=== PATIENT | female | born 1975 | race Caucasian/White ===

== ENCOUNTER 2020-10-25 19:00 | Emergency (ER) | payer BC ==
[~2020-10-25] VITALS: Ht 180.3 cm; Wt 85.4 kg
[2020-10-25 19:23] VITALS: BP 131/82
[2020-10-25] MEDS ORDERED: OXYMETAZOLINE 0.05% NASAL SPRAY 30ML BOTTLE. NS ONE ×2 (19:30→19:34)
[2020-10-25] MEDS ORDERED: ACETAMINOPHEN 500 MG TABLET PO ONE ×2 (19:30→19:34)
[2020-10-25] MEDS ORDERED: IBUPROFEN 600 MG TABLET. PO ONE ×2 (19:34→19:45)
--- NOTE | 2020-10-25 20:13 | PHYS DOC ---
Past History Past Medical History: Cancer, Other Past Surgical History: No Surgical History Alcohol Use: None Drug Use: None Adult General Chief Complaint Chief Complaint: ALLERGIES HPI HPI Patient is a 45-year-old female with a past medical history significant for seasonal allergies who presents with nasal congestion. States has had some nasal congestion and itchy nose and eyes for the last couple of days. States he has been taking Benadryl which does help the itching but has not helped her nasal congestion. Denies any recent traumas, illnesses, fevers, sore throat, pain or trouble swallowing, cough, chest pain, shortness of breath, abdominal pain, nausea, vomiting. Review of Systems Review of Systems Review of systems otherwise unremarkable except noted in HPI Current Medications Current Medications Current Medications Medications (Trade) Dose Ordered Sig/Calli Start Time Stop Time Status Last Admin Dose Admin Acetaminophen (Tylenol) 500 mg STK-MED ONCE 10/25/20 19:34 10/25/20 19:34 DC Ibuprofen (Motrin) 600 mg STK-MED ONCE 10/25/20 19:34 10/25/20 19:34 DC Oxymetazoline HCl (Afrin) 100 spray STK-MED ONCE 10/25/20 19:34 10/25/20 19:34 DC Allergies Allergies Allergies Coded Allergies Type Severity Reaction Last Updated Verified No Known Drug Allergies 10/25/20 No Physical Exam Physical Exam Constitutional: Well developed, well nourished, no acute distress, non-toxic appearance. [] HENT: Normocephalic, atraumatic, bilateral external ears normal, oropharynx moist, no oral exudates, nasal congestion/mucus bilaterally, nose normal. [] Eyes: conjunctiva normal, no discharge. [] Neck: Normal range of motion, no tenderness, supple, no stridor. [] Cardiovascular:Heart rate regular rhythm, no murmur [] Lungs & Thorax: Bilateral breath sounds clear to auscultation [] Neurologic: Alert and oriented X 3, normal motor function, normal sensory functi on, no focal deficits noted. [] Psychologic: Affect normal, judgement normal, mood normal. [] Current Patient Data Vital Signs Vital Signs Date Time Temp Pulse Resp B/P (MAP) Pulse Ox O2 Delivery O2 Flow Rate FiO2 10/25/20 19:23 97.9 77 22 131/82 98 Room Air EKG EKG [] Radiology/Procedures Radiology/Procedures [] Heart Score C/O Chest Pain: No Risk Factors: Risk Factors: DM, Current or recent (<one month) smoker, HTN, HLP, family history of CAD, obesity. Risk Scores: Risk Factors: DM, Current or recent (<one month) smoker, HTN, HLP, family history of CAD, obesity. Course & Med Decision Making Course & Med Decision Making Patient is a 45-year-old female with nasal congestion for 2 days and seasonal allergies Vital signs not concerning. Physical exam noted above. Given Tylenol, ibuprofen and Afrin with some relief. Discussed all findings with patient. Advised on symptom management at home. Advised to follow-up with primary care physician in the morning. Gave return precautions to the ED. Patient grateful, verbalized understanding and agreed with plan of discharge. [] Dragon Disclaimer Dragon Disclaimer This electronic medical record was generated, in whole or in part, using a voice recognition dictation system. Departure Departure: Impression: Primary Impression: Seasonal allergies Additional Impression: Nasal congestion Disposition: 01 HOME / SELF CARE / HOMELESS Condition: GOOD Referrals: PCPASHTYN (PCP) GRETA RIBEIRO Patient Instructions: Allergies, Generic Additional Instructions: Thank you for coming into the emergency department tonight and allowing us to take care of you. Please read the attached information. Please continue Tylenol, ibuprofen, Benadryl and Afrin as needed. Please follow-up with your primary care physician in the morning to update on your ED visit. Please come back to the ED with new or concerning symptoms as discussed. Problem Qualifiers WILDER ESCOBEDO MD Oct 25, 2020 20:13
== END 2020-10-25 20:27 | disposition home or self-care (01) ==
LOC: ER 19:00
DX: J30.2 Other seasonal allergic rhinitis (principal); R09.81 Nasal congestion
CPT/HCPCS: 99284

== ENCOUNTER 2021-05-05 14:24 | Emergency (ER) | payer BC ==
[~2021-05-05] VITALS: Ht 180.3 cm; Wt 85.4 kg
[2021-05-05 14:34] VITALS: BP 122/66
--- NOTE | 2021-05-05 14:39 | PHYS DOC ---
Past History Past Medical History: Cancer, Other (TIM TORRES APRN) Past Surgical History: No Surgical History (TIM TORRES APRN) Alcohol Use: None Drug Use: None (TIM TORRES APRN) General Adult EDM: Chief Complaint: SHOULDER INJURY HPI: HPI: Patient is a 46-year-old female who presents to the emergency department for right elbow and shoulder pain. Patient reports that she was helping her unload trash in a tailgate rink was down there was some liquid on it she slipped and fell onto her right elbow. She rates her pain 8 out of 10. No treatment prior to arrival. She denies hitting her head, loss of consciousness, decreased sensation in your hand or blood thinner use. (TIM TORRES APRN) Review of Systems: Review of Systems: HENT: See HPI Musculoskeletal: HPI Integument: See HPI Neurologic: See HPI (TIM TORRES APRN) Allergies: Allergies: Allergies Coded Allergies Type Severity Reaction Last Updated Verified No Known Drug Allergies 10/25/20 No (TIM TORRES APRN) Physical Exam: PE: Constitutional: Well developed, well nourished, no acute distress, non-toxic appearance. [] HENT: Normocephalic, atraumatic, bilateral external ears normal, oropharynx moist, no oral exudates, nose normal. [] Eyes: PERRL, EOMI, conjunctiva normal, no discharge. [] Neck: Normal range of motion, no stridor Cardiovascular: Peripheral perfusion Lungs & Thorax: Normal work of breathing, no tachypnea Abdomen: Soft and flat Skin: Warm, dry, no erythema, no rash. [] Back: No tenderness, normal range of motion Extremities: No tenderness, no cyanosis, no clubbing, ROM intact, no edema. [] Right elbow: Small abrasion noted to right elbow, no crepitus, decreased extension due to pain, neuro intact, no obvious deformity. Right shoulder: Pain with palpation to trapezius muscle, no crepitus, range of motion intact, neuro intact, no crepitus or pain with palpation of clavicle, patient able to move fingers, neuro intact to hand. Neurologic: Alert and oriented X 3, normal motor function, normal sensory function, no focal deficits noted. [] Psychologic: Affect normal, judgement normal, mood normal. [] (TIM TORRES APRN) EKG: EKG: [] (TIM TORRES APRN) Radiology/Procedures: Radiology/Procedures: []PROCEDURE: ELBOW RIGHT 3V Right elbow 3 views, right shoulder 3 views HISTORY: Pain after a fall Right elbow 3 views were taken of the right elbow. There is not evidence of an acute fracture or osseous abnormality. Right shoulder 3 views were taken of the right shoulder. There is not evidence of an acute fracture or dislocation or osseous abnormality. IMPRESSION: 1. No fracture or dislocation right shoulder. 2. No fracture or acute osseous abnormality right elbow. Electronically signed by: Favian Quinones MD (05/05/2021 3:19 PM) [facility] DICTATED AND SIGNED BY: FAVIAN QUINONES MD DATE: 05/05/211516 CC: TIM TORRES APRN; PCP,NO ~MTH0 0 (TIM TORRES APRN) Heart Score: C/O Chest Pain: N/A Risk Factors: Risk Factors: DM, Current or recent (<one month) smoker, HTN, HLP, family history of CAD, obesity. Risk Scores: Score 0 - 3: 2.5% MACE over next 6 weeks - Discharge Home Score 4 - 6: 20.3% MACE over next 6 weeks - Admit for Clinical Observation Score 7 - 10: 72.7% MACE over next 6 weeks - Early Invasive Strategies (TIM TORRES APRN) Course & Med Decision Making: Course & Med Decision Making Pertinent Labs and Imaging studies reviewed. (See chart for details) [] Patient presents to the emergency department for right elbow and shoulder pain after falling onto it after slipping on something wet. Imaging was perform ed. Imaging did not show any acute fracture. Patient is neurovascularly intact. Patient's pain was treated in the emergency department. X-ray showed no acute findings. Patient's shoulder placed in a sling for support. Patient advised to take Tylenol and ibuprofen for pain and apply ice. I discussed with patient all findings and diagnostic testing as well as the need to follow-up with PCP for further evaluation and treatment or return to the ER if any new or worsening symptoms. Strict return precautions were also discussed at length. Patient voiced understanding and agreement with the plan. Patient is hemodynamically stable at the time of disposition. (TIM TORRES APRN) Course & Med Decision Making I was the Attending physician on the above date of service of this patient. This patient was evaluated, examined, treated, and dispositioned from the emergency department by the mid-level practitioner. Although I was working at the time , no assistance was requested. Electronically signed, Rick Yoder DO (RICK YODER DO) Ayana Disclaimer: Ayana Disclaimer: This electronic medical record was generated, in whole or in part, using a voice recognition dictation system. (TIM TORRES APRN) Departure Departure: Impression: Primary Impression: Fall Qualified Codes: W19.XXXA - Unspecified fall, initial encounter Disposition: HOME / SELF CARE / HOMELESS Condition: GOOD Referrals: PCP,ASHTYN (PCP) Patient Instructions: Elbow Contusion Additional Instructions: You were seen in the emergency department for right shoulder and elbow pain after falling onto it today. X-ray was performed that showed no acute findings. You can take ibuprofen or naproxen for mild pain, for severe pain you are being discharged home with [place] which is hydrocodone and tylenol in a combination tablet, do not take any additional tylenol and do not take when you need to be alert, driving a vehicle or with alcohol.. You can also apply ice. Follow-up with your primary care provider within a week if your pain persists. Return to the emergency department if you develop worsening of your pain, inability to move your arm, decreased sensation in your extremity pain or worsening concerns. Scripts Hydrocodone Bit/Acetaminophen (HYDROCODONE-APAP 5-325 ) 1 Each Tablet 1 TAB PO PRN Q6HRS PRN for PAIN for 2 Days, #8 TAB 0 Refills Prov: TIM TORRES APRN 05/05/21 TIM TORRES APRN May 05, 2021 14:39 RICK YODER DO May 06, 2021 06:17
[2021-05-05] MEDS ORDERED: HYDROcodone/APAP 5/325MG 1 TAB TABLET PO ONE (14:45)
--- NOTE | 2021-05-05 15:21 | RAD ---
Right elbow 3 views, right shoulder 3 views HISTORY: Pain after a fall Right elbow 3 views were taken of the right elbow. There is not evidence of an acute fracture or osseous abnormal ity. Right shoulder 3 views were taken of the right shoulder. There is not evidence of an acute fracture or dislocation o r osseous abnormality. IMPRESSION: 1. No fracture or dislocation right shoulder. 2. No fracture or acute osseous abnormality right elbow. Electronically signed by: Favian Quinones MD (05/05/2021 3:19 PM) [facility]
[2021-05-05] MEDS ORDERED: HYDR-2155 PO (15:30)
== END 2021-05-05 15:46 | disposition home or self-care (01) ==
LOC: ER 14:24
DX: S50.311A Abrasion of right elbow, initial encounter (principal); M25.511 Pain in right shoulder; W01.0XXA Fall on same level from slipping, tripping and stumbling without subsequent striking against object, initial encounter; Y93.89 Activity, other specified; Y92.89 Other specified places as the place of occurrence of the external cause; Y99.8 Other external cause status
CPT/HCPCS: 73030; 73080; 99284